=== PATIENT | female | born 1995 | race Hispanic/Latino ===

== ENCOUNTER 2021-08-13 08:57 | Inpatient (IN) | payer OTHER ==
[2021-08-13 09:31] VITALS: BMI 25.4
[2021-08-13] MEDS ORDERED: Carboprost 250 MCG/ML AMP IM PRN (09:49)
[2021-08-13] MEDS ORDERED: Methylergonovine 0.2 MG/ML VIAL IM PRN (09:49)
[2021-08-13] MEDS ORDERED: Promethazine HCl 25 MG/ML VIAL IM PRN ×2 (09:49→19:27)
[2021-08-13] MEDS ORDERED: HYDROcodone/Acetaminophen 5/325 mg Tablet PO PRN ×2 (09:49→19:27)
[2021-08-13] MEDS ORDERED: Diphenoxylate HCl/Atropine Tablet PO PRN (09:49)
[2021-08-13] MEDS ORDERED: Ondansetron PF 4 MG/2 ML Vial IVP PRN ×2 (09:49→19:27)
[2021-08-13] MEDS ORDERED: Acetaminophen 500 MG TAB PO PRN (09:49)
[2021-08-13] MEDS ORDERED: hydrALAZINE 20 MG/ML VIAL SLOW IVP PRN ×2 (09:49→19:27)
[2021-08-13] MEDS ORDERED: Misoprostol 200 MCG TAB PR PRN (09:49)
[2021-08-13] MEDS ORDERED: Lidocaine 1% (PF) 30 ML VIAL SC PRN (09:49)
[2021-08-13] MEDS ORDERED: Ibuprofen 800 MG TAB PO PRN (09:49)
[2021-08-13] MEDS ORDERED: NS w/ Oxytocin 30 units 500 ML IV SCH ×2 (10:00→19:27)
[2021-08-13] MEDS ORDERED: NS w/ Oxytocin 30 units 500 ML IVPB SCH (10:00)
[2021-08-13] MEDS ORDERED: Lactated Ringer's 1,000 ML IV SCH (10:00)
[2021-08-13] MEDS: Butorphanol Tartrate 1 MG/ML VIAL SLOW IVP PRN ×2 (11:06→13:47)
[2021-08-13 11:50] LABS: Hemoglobin 11.8 g/dL (12.0-15.5); Mean Corpuscular HGB CONC 31.8 g/dL (32.0-36.0); Mean Corpuscular Hemoglobin 27.4 pg (27.0-33.0); Mean Corpuscular Volume 86.3 fl (81.6-98.3); Platelet Count 234 10x3/uL (150-450); RBC Distribution Width 15.8 % (11.5-14.5); White Blood Cell (WBC) Count 7.9 10x3/uL (3.5-10.5)
[2021-08-13 11:53] LABS: SARS-CoV-2 NAA Rapid Test Not Detected (NotDetected)
[2021-08-13 12:22] LABS: Hep B Surf Ag Non-Reactive S/CO (NonReactive)
[2021-08-13 12:23] LABS: Syphilis Antibody Nonreactive (Nonreactive); Syphilis Antibody Index 0.04 S/CO (<1.00 Non-Reactive)
[2021-08-13] MEDS: NS w/ Oxytocin 30 units 500 ML IV SCH ×2 (17:00→17:34)
[2021-08-13] MEDS ORDERED: Preparation H Ointment 28 GM TUBE PR PRN (19:27)
[2021-08-13] MEDS ORDERED: Lanolin Ointment 7 GM TUBE TOP PRN (19:27)
[2021-08-13] MEDS ORDERED: Bisacodyl 10 MG SUPP PR PRN (19:27)
[2021-08-13] MEDS ORDERED: diphenhydrAMINE 25 MG CAP PO PRN (19:27)
[2021-08-13] MEDS ORDERED: Boostrix 0.5 ML (Tdap) VIAL IM ONE (19:27)
[2021-08-13] MEDS ORDERED: Benzocaine-Menthol 82.5 ML CAN TOP PRN (19:27)
[2021-08-13] MEDS ORDERED: Milk Of Magnesia 30 ML UDCUP PO PRN (19:27)
[2021-08-14] MEDS: Docusate Calcium (SURFAK) 240 MG CAP PO SCH ×2 (01:24→08:24)
[2021-08-14] MEDS: Ibuprofen 800 MG TAB PO SCH ×3 (01:24→14:15)
[2021-08-14] MEDS: Ferrous Sulfate 325 MG TAB PO SCH ×2 (07:54→17:17)
[2021-08-14] MEDS ORDERED: Prenatal Vitamin 1 TAB PO SCH (09:00)
[2021-08-14 17:29] VITALS: BP 120/57; TEMP 98.9
== END 2021-08-14 18:25 | disposition home or self-care (01) | DRG 807 ==
LOC: CSHLD/OP 08:57 → CSHLD 10:13 → CSHPP 22:29
PROVIDERS: ADMIT Family Medicine; ATTEND Family Medicine
PROC: 10E0XZZ Delivery of Products of Conception, External Approach (ICD-10-PCS; principal; 2021-08-13)
DX: O80 Encounter for full-term uncomplicated delivery (principal); Z37.0 Single live birth; Z20.822 Contact with and (suspected) exposure to COVID-19; Z3A.39 39 weeks gestation of pregnancy
CPT/HCPCS: 36415; 85027; 86780; 86850; 86900; 86901; 87340; 99285; J0595; J2590; U0002

== ENCOUNTER 2022-07-05 21:06 | Inpatient (IN) | payer OTHER ==
[~2022-07-05 21:06] MED LIST: Iopamidol 300 61% 100 ML VIAL FS ONE
[2022-07-05] MEDS ORDERED: Morphine 4 MG/ML VIAL ONE (22:25)
[2022-07-05] MEDS ORDERED: Ondansetron PF 4 MG/2 ML Vial ONE (22:26)
[2022-07-05 22:31] LABS: ALT (SGPT) 711 U/L (8-55); AST (SGOT) 506 U/L (5-34); Albumin 5.3 g/dL (3.5-5.0); Alkaline Phosphatase 326 U/L (40-110); Anion Gap 17 mmol/L (10-20); BHCG - Serum Negative (NEGATIVE); BUN (Urea Nitrogen) 9 mg/dL (7.0-18.7); Bilirubin, Total 2.8 mg/dL (0.2-1.2); Calc. Creatinine Clearance 0 mL/min (70-130); Calcium 10.3 mg/dL (7.8-10.44); Carbon Dioxide 25 mmol/L (22-29); Chloride 101 mmol/L (98-107); Estimated GFR 123; Globulin 3.9 g/dL (2.4-3.5); Glucose 95 mg/dL (70-105); Lipase 21 U/L (8-78); Potassium 3.5 mmol/L (3.5-5.1); Pregs Control Background? CLEAR/WHITE (CLR/WHITE); Pregs Control Bar Appear? YES (CONTROL BAR); Protein, Total 9.2 g/dL (6.0-8.3); Sodium 139 mmol/L (136-145)
[2022-07-05 22:35] LABS: #Monocytes 0.4 10x3/uL (0.0-1.1); #Neutrophils 3.3 10x3/uL (1.5-8.4); %Basophils 0.7 % (0.0-2.0); %Eosinophils 0.7 % (0.0-6.0); %Lymphocytes 29.8 % (18.0-47.0); %Monocytes 7.4 % (0.0-10.0); %Neutrophils 61.4 % (40.0-75.0); Mean Corpuscular HGB CONC 33.1 g/dL (32.0-36.0); Mean Corpuscular Hemoglobin 28.1 pg (27.0-33.0); Mean Corpuscular Volume 84.8 fl (81.6-98.3); Mean Platelet Volume 10.8 fl (7.4-10.4); Platelet Count 338 10x3/uL (150-450); RBC Distribution Width 14.2 % (11.5-14.5); Red Blood Cell (RBC) Count 5.34 10x6/uL (3.90-5.03); White Blood Cell (WBC) Count 5.4 10x3/uL (3.5-10.5)
[2022-07-05 22:40] LABS: Bilirubin 3+ (Negative); Blood, Urine Negative (Negative); Clarity Cloudy (Clear); Glucose, Urine (Dipstick) Normal (Negative); Ketone, Urine 150 mg/dL (Negative); Leukocyte 25 (Negative); Nitrite Positive (Negative); Protein, Urine (Dipstick) 30 mg/dl (Neg-Trace); Urobilinogen 12 mg/dL (Less than 2); pH, Urine 6.5 (5.0-9.0)
[2022-07-05 22:53] LABS: Bacteria/HPF 2+ HPF (None Seen); Mucous/LPF 4+ LPF (<2+); RBC/HPF 0-3 HPF (0-3)
[2022-07-05] MEDS ORDERED: Piperacillin/Tazobactam 3.375 GM VIAL ONE (23:55)
[2022-07-06] MEDS ORDERED: Senokot S 8.6-50 MG TAB PO PRN (01:33)
[2022-07-06] MEDS ORDERED: Zolpidem Tartrate 5 MG TAB PO PRN (01:33)
[2022-07-06] MEDS ORDERED: HYDROcodone/Acetaminophen 5/325 mg Tablet PO PRN (01:33)
[2022-07-06] MEDS ORDERED: Guaifenesin DM 100-10/5 ML UDCUP PO PRN (01:33)
[2022-07-06] MEDS ORDERED: Calcium Carbonate 500 MG ChewTAB PO PRN (01:33)
[2022-07-06] MEDS ORDERED: Acetaminophen 325 MG TAB PO PRN (01:33)
[2022-07-06] MEDS ORDERED: Morphine 2 MG/ML VIAL SLOW IVP PRN (01:41)
[2022-07-06] MEDS: Lactated Ringer's 1,000 ML IV SCH ×3 (01:47→16:23)
[2022-07-06 04:01] LABS: #Monocytes 0.5 10x3/uL (0.0-1.1); %Basophils 0.4 % (0.0-2.0); %Eosinophils 0.4 % (0.0-6.0); %Lymphocytes 26.8 % (18.0-47.0); %Neutrophils 62.2 % (40.0-75.0); Hemoglobin 12.2 g/dL (12.0-15.5); Mean Corpuscular Hemoglobin 28.4 pg (27.0-33.0); Mean Platelet Volume 10.6 fl (7.4-10.4); Platelet Count 255 10x3/uL (150-450); RBC Distribution Width 14.3 % (11.5-14.5); White Blood Cell (WBC) Count 4.8 10x3/uL (3.5-10.5)
[2022-07-06 04:27] LABS: ALT (SGPT) 519 U/L (8-55); AST (SGOT) 340 U/L (5-34); Acetaminophen Less than 10.0 mcg/mL (10.0-30.0); Albumin 3.8 g/dL (3.5-5.0); Alkaline Phosphatase 236 U/L (40-110); Anion Gap 13 mmol/L (10-20); BUN (Urea Nitrogen) 7 mg/dL (7.0-18.7); Bilirubin, Total 1.9 mg/dL (0.2-1.2); Calc. Creatinine Clearance 0 mL/min (70-130); Calcium 8.6 mg/dL (7.8-10.44); Carbon Dioxide 24 mmol/L (22-29); Chloride 106 mmol/L (98-107); Estimated GFR 127; Globulin 2.7 g/dL (2.4-3.5); Glucose 94 mg/dL (70-105); Potassium 3.6 mmol/L (3.5-5.1); Protein, Total 6.5 g/dL (6.0-8.3); Sodium 139 mmol/L (136-145)
[2022-07-06 04:41] LABS: SARS-CoV-2 NAA Rapid Test Not Detected (NotDetected)
[2022-07-06 07:28] VITALS: BMI 21.9
[2022-07-06] MEDS: Piperacillin/Tazobactam 3.375 GM in Sodium Chloride 0.9% 100 ML IVPB SCH ×2 (08:15→16:12)
[2022-07-06] MEDS ORDERED: Enoxaparin Sodium 40 MG/0.4 ML SYRINGE ONE (09:01)
[2022-07-06] MEDS ORDERED: Famotidine/PF 20 mg/2ml Vial ONE (09:01)
[2022-07-06] MEDS: Enoxaparin Sodium 40 MG/0.4 ML SYRINGE SC SCH (09:21)
[2022-07-06] MEDS: Famotidine/PF 20 mg/2ml Vial SLOW IVP SCH ×2 (09:22→20:02)
[2022-07-06] MEDS ORDERED: Acetaminophen 325 MG TAB ONE (10:43)
[2022-07-06 14:39] LABS: HBCM Index 0.07 S/CO (0-0.79); HBSAg Index 0.31 S/CO (0-0.99); Hep A IgM AB Non-Reactive (NonReactive); Hep A IgM S/CO 0.14 S/CO (0-0.79); Hep B Surf Ag Non-Reactive S/CO (NonReactive); Hep C IgG Ab Non-Reactive (NonReactive); Hep C Index 0.06 S/CO (0-0.79); Hepatitis B Core IgM Abs Non-Reactive (NonReactive)
[2022-07-06] MEDS: Ondansetron PF 4 MG/2 ML Vial IVP PRN ×2 (15:50→21:47)
[2022-07-06] MEDS ORDERED: Lactated Ringer's 500 ML IV SCH ×2 (19:30→20:00)
[2022-07-07] MEDS: Lactated Ringer's 1,000 ML IV SCH ×3 (01:21→21:30)
[2022-07-07] MEDS: Piperacillin/Tazobactam 3.375 GM in Sodium Chloride 0.9% 100 ML IVPB SCH ×3 (01:21→16:02)
[2022-07-07] MEDS: Famotidine/PF 20 mg/2ml Vial SLOW IVP SCH ×2 (08:31→21:32)
[2022-07-07] MEDS ORDERED: Indomethacin 50 MG SUPP ONE (13:58)
[2022-07-07] MEDS ORDERED: Fentanyl 100 MCG/2 ML VIAL ONE (14:07)
[2022-07-08] MEDS: Piperacillin/Tazobactam 3.375 GM in Sodium Chloride 0.9% 100 ML IVPB SCH ×2 (00:14→09:07)
[2022-07-08] MEDS: Lactated Ringer's 1,000 ML IV SCH ×2 (05:21→09:48)
[2022-07-08 07:55] VITALS: BP 90/53; TEMP 98.2
[2022-07-08] MEDS: Enoxaparin Sodium 40 MG/0.4 ML SYRINGE SC SCH (09:07)
[2022-07-08] MEDS: Famotidine/PF 20 mg/2ml Vial SLOW IVP SCH (09:07)
== END 2022-07-08 11:40 | disposition home or self-care (01) | DRG 445 ==
LOC: CSHERS 21:06 → CSHERHOLD 07-06 01:03 → CSHPP 07-06 12:35
PROVIDERS: ADMIT Student in an Organized Health Care Education/Training Program; ATTEND Nurse Practitioner Family
PROC: 0FC98ZZ Extirpation of Matter from Common Bile Duct, Via Natural or Artificial Opening Endoscopic (ICD-10-PCS; principal; 2022-07-07)
PROC: BF101ZZ Fluoroscopy of Bile Ducts using Low Osmolar Contrast (ICD-10-PCS; 2022-07-07)
DX: K80.51 Calculus of bile duct without cholangitis or cholecystitis with obstruction (principal); N39.0 Urinary tract infection, site not specified; Z20.822 Contact with and (suspected) exposure to COVID-19; Z79.899 Other long term (current) drug therapy; Z90.49 Acquired absence of other specified parts of digestive tract
CPT/HCPCS: 36415; 74177; 74181; 74330; 80053; 80074; 80143; 81003; 81015; 83690; 84703; 85025; 87040; 87086; 96361; 96374; 96375; 80307; C1725; C1769; J1650; J2270; J2405; J2543; J3010; J3490; J7120; Q9967; S0028; U0002